=== PATIENT | female | born 1955 | race Caucasian/White ===

== ENCOUNTER 2017-02-08 22:38 | Emergency (ER) | payer BC ==
[2017-02-08 23:17] LABS: BASOPHIL % 0.6 % (0-2); PLATELET COUNT 281 x10^3mcL (130-400); RED CELL DISTRIBUTION WIDTH 14.1 % (11.5-14.5)
[2017-02-08 23:20] LABS: CALCIUM 8.6 mg/dL (8.5-10.1); CARBON DIOXIDE 29.5 mmol/L (21-32); CHLORIDE SERUM 109 mmol/L (98-107); CREATININE SERUM 0.9 mg/dL (0.6-1.0); GFR1 > 60 mL/min; GLUCOSE SERUM 104 mg/dL (74-106); POTASSIUM SERUM 3.4 mmol/L (3.5-5.1); SODIUM SERUM 145 mmol/L (136-145)
[2017-02-08 23:48] LABS: ALBUMIN 3.4 g/dL (3.4-5.0); ALKALINE PHOSPHATASE 97 U/L (46-116); ALT/SGPT 15 U/L (14-59); AST/SGOT 14 U/L (15-37); BILIRUBIN TOTAL 0.2 mg/dL (0.20-1.00); CK-MB 0.7 ng/mL (0-3.6); TOTAL PROTEIN, SERUM 6.8 g/dL (6.4-8.2)
[2017-02-09 01:01] VITALS: BP 130/102
== END 2017-02-09 01:01 | disposition home or self-care (01) ==
LOC: ED 22:38
PROVIDERS: Emergency Medicine
DX: R53.1 Weakness (principal); I10 Essential (primary) hypertension
CPT/HCPCS: G0480; Q0092